=== PATIENT | female | born 1995 | race Caucasian/White ===

== ENCOUNTER 2023-10-10 08:00 | Inpatient (IN) | payer OTHER ==
[2023-10-10] MEDS ORDERED: CITRIC ACID/SODIUM CITRATE 30 ML UNIT-DOSE CUP PO ONE (09:32)
[2023-10-10] MEDS ORDERED: ONDANSETRON 4 MG/2 ML VIAL IVPUSH PRN (09:39)
[2023-10-10] MEDS ORDERED: ACETAMINOPHEN 325 MG TABLET (FP) PO PRN ×2 (09:39→13:15)
[2023-10-10] MEDS ORDERED: ELECTROLYTE-148 SOLN 1,000 ML IV SCH (09:45)
[2023-10-10 10:13] VITALS: BMI 33.6
[2023-10-10 11:46] LABS: HIV INTERPRETATION NEGATIVE (NEGATIVE)
[2023-10-10] MEDS ORDERED: morphine SULFATE/PF 1 MG/2 ML (2cc Syringe - QUVA) ONE (12:16)
[2023-10-10] MEDS ORDERED: ePHEDrine SULFATE 50 MG/1 ML AMPULE ONE (12:28)
[2023-10-10] MEDS ORDERED: ceFAZolin SODIUM 1 GM VIAL ONE ×2 (12:35)
[2023-10-10] MEDS ORDERED: OXYTOCIN 10 UNITS/ML VIAL ONE ×2 (12:35)
[2023-10-10] MEDS ORDERED: PHENYLEPHRINE HCL 10 MG/1 ML SINGLE DOSE VIAL ONE (12:35)
[2023-10-10] MEDS ORDERED: METHYLERGONOVINE MALEATE 0.2 MG/1 ML AMP IM PRN (13:15)
[2023-10-10] MEDS ORDERED: ACETAMINOPHEN 1000 MG/100 ML BAG IVPB PRN (13:17)
[2023-10-10 13:37] LABS: CORD PCO2 64.4 mmHg (30-78)
[2023-10-10] MEDS ORDERED: OXYTOCIN 20 UNITS in 0.9% NS 20 UNIT/1,000 ML INFUS.BAG IV ONE (13:39)
[2023-10-10 13:40] LABS: CORD BASE EXCESS -6.7 mmol/L (0-2); CORD HCO3 21.1 mmHg (20-29); CORD PCO2 51.1 mmHg (30-78); CORD pH 7.234 (7.14-7.44)
[2023-10-10] MEDS: OXYTOCIN 20 UNITS in 0.9% NS 20 UNIT/1,000 ML INFUS.BAG IV SCH ×2 (13:40→22:00)
[2023-10-10] MEDS: CEFAZOLIN SODIUM 2 GM in DEXTROSE 5%-WATER 100 ML IVPB SCH (17:32)
[2023-10-11] MEDS ORDERED: oxyCODONE HCL 5 MG TABLET PO PRN ×2 (01:15)
[2023-10-11] MEDS: CEFAZOLIN SODIUM 2 GM in DEXTROSE 5%-WATER 100 ML IVPB SCH ×2 (01:39→09:31)
[2023-10-11] MEDS: SIMETHICONE 80 MG TAB.CHEW (FP) PO PRN ×2 (06:40→18:14)
[2023-10-11 08:09] LABS: BASO % 0.3 % (0-2.0); EOS % 1.5 % (0-4.5); HEMOGLOBIN 12.1 GM/dL (10.7-15.3); MCH 28.8 pg (25.7-33.7); MCHC 33.6 g/dl (32.0-36.0); MEAN CELL VOLUME 85.7 fl (80-96); MONO % 6.3 % (3.8-10.2); NEUT % 78.9 % (42.8-82.8); PLATELET COUNT 106 10^3/uL (134-434); RDW 14.2 % (11.6-15.6); WHITE BLOOD COUNT 8.1 K/mm3 (4.0-10.0)
[2023-10-11] MEDS: IBUPROFEN 600 MG TABLET (FP) PO PRN ×3 (08:33→20:32)
[2023-10-11] MEDS: ENOXAPARIN NA (PORCINE) 40 MG/0.4 ML DISP.SYRIN SQ SCH (09:32)
[2023-10-11] MEDS ORDERED: BISACODYL 10 MG SUPP.RECT RC PRN (13:15)
[2023-10-11] MEDS: OXYTOCIN 20 UNITS in 0.9% NS 20 UNIT/1,000 ML INFUS.BAG IV SCH (15:36)
[2023-10-12] MEDS: IBUPROFEN 600 MG TABLET (FP) PO PRN ×5 (05:57→23:14)
[2023-10-12] MEDS: SIMETHICONE 80 MG TAB.CHEW (FP) PO PRN ×5 (05:57→23:14)
[2023-10-12] MEDS: ENOXAPARIN NA (PORCINE) 40 MG/0.4 ML DISP.SYRIN SQ SCH (11:00)
[2023-10-13 03:50] VITALS: RESP 18
[2023-10-13] MEDS: SIMETHICONE 80 MG TAB.CHEW (FP) PO PRN (05:31)
[2023-10-13] MEDS: IBUPROFEN 600 MG TABLET (FP) PO PRN ×2 (05:32→11:18)
[2023-10-13 08:36] LABS: BASO % 0.5 % (0-2.0); EOS % 2.4 % (0-4.5); HEMOGLOBIN 11.9 GM/dL (10.7-15.3); LYMPH % 15.9 % (8-40); MCH 28.8 pg (25.7-33.7); MCHC 33.2 g/dl (32.0-36.0); MEAN CELL VOLUME 86.8 fl (80-96); MEAN PLT VOLUME 10.5 fl (7.5-11.1); MONO % 5.7 % (3.8-10.2); NEUT % 75.5 % (42.8-82.8); PLATELET COUNT 149 10^3/uL (134-434); RBC 4.14 M/mm3 (3.60-5.2); RDW 14.1 % (11.6-15.6); WHITE BLOOD COUNT 6.5 K/mm3 (4.0-10.0)
[2023-10-13] MEDS: ENOXAPARIN NA (PORCINE) 40 MG/0.4 ML DISP.SYRIN SQ SCH (09:42)
[2023-10-13 10:09] VITALS: BP 115/80; PULSE 80; TEMP 98
== END 2023-10-13 13:20 | disposition home or self-care (01) | DRG 787 ==
LOC: JLDR 08:00 → J3W 15:35
PROVIDERS: ADMIT Obstetrics & Gynecology; ATTEND Obstetrics & Gynecology
PROC: 10D00Z1 Extraction of Products of Conception, Low, Open Approach (ICD-10-PCS; principal; 2023-10-10)
PROC: 3E0334Z Introduction of Serum, Toxoid and Vaccine into Peripheral Vein, Percutaneous Approach (ICD-10-PCS; 2023-10-10)
DX: O34.211 Maternal care for low transverse scar from previous cesarean delivery (principal); O36.0930 Maternal care for other rhesus isoimmunization, third trimester, not applicable or unspecified; N85.8 Other specified noninflammatory disorders of uterus; O48.0 Post-term pregnancy; Z3A.40 40 weeks gestation of pregnancy; Z37.0 Single live birth
CPT/HCPCS: 36415; 36600; 82803; 85025; 85461; 87389; 94010; 96372; J2790